=== PATIENT | female | born 1935 | race Caucasian/White ===

== ENCOUNTER 2019-01-26 19:59 | Inpatient (IN) | payer OTHER, MEDICAID ==
[2019-01-26 21:21] LABS: ABNORMAL IP MESSAGE 1; HEMATOCRIT 38.2 % (37.0-47.0); HEMOGLOBIN 12.1 g/dl (12.0-16.0); MEAN CORPUSCULAR HEMOGLOBIN 28.5 pg (29.0-33.0); MEAN CORPUSCULAR HGB CONC 31.7 g/dl (32.0-37.0); MEAN CORPUSCULAR VOLUME 89.9 fl (82.0-101.0); MEAN PLATELET VOLUME 11.3 fl (7.4-10.4); NUCLEATED RED BLOOD CELLS% 0.1 /100WBC (0.0-0.0); PLATELET COUNT 155 10^3/UL (140-415); RED BLOOD COUNT 4.25 10^6/ul (4.20-5.40)
[2019-01-26 21:21] LABS: WHITE BLOOD COUNT 18.3 10^3/ul (4.8-10.8)
[2019-01-26 21:25] LABS: ADD MAN DIFF? YES; POSITIVE DIFF @See below
[2019-01-26 21:38] LABS: ANION GAP 10 (5-13); BLOOD UREA NITROGEN 56 mg/dl (7-20); CALCIUM 10.9 mg/dl (8.4-10.2); CARBON DIOXIDE 25 mmol/L (21-31); CHLORIDE 106 mmol/L (97-110); CREATININE 1.57 mg/dl (0.44-1.00); POTASSIUM 4.1 mmol/L (3.5-5.1); SODIUM 141 mmol/L (135-144)
[2019-01-26 21:44] LABS: GLUCOSE 427 mg/dl (70-220)
[2019-01-26 21:50] LABS: B-TYPE NATRIURETIC PEPTIDE 8710 PG/ML (0-450); TROPONIN-I 0.063 ng/ml (0.000-0.120)
[2019-01-26 22:11] LABS: LYMPHOCYTES #M 0.5 10^3/ul (0.8-2.9); LYMPHOCYTES % (M) 3 % (15-51); METAMYELOCYTES #M 0.3 10^3/ul (0.0-0.0); METAMYELOCYTES %M 2 % (0-0); MONOCYTE #M 0.5 10^3/ul (0.3-0.9); MONOCYTES % (M) 3 % (0-11); PLATELET ESTIMATE NORMAL; SEGMENTED NEUTROPHILS (M) % 92 % (39-77); SMUDGE%M 23 % (0-0)
[2019-01-26 23:06] LABS: URINE BLOOD (Dip) POC 1+ (NEGATIVE); URINE KETONES (Dip) POC Negative (NEGATIVE); URINE LEUKOCYTE EST (Dip) POC 1+ (NEGATIVE); URINE NITRITE (Dip) POC Negative (NEGATIVE); URINE TOTAL PROTEIN POC Negative (NEGATIVE)
[2019-01-27] MEDS: FUROSEMIDE 40 MG INJ IV (00:26)
[2019-01-27] MEDS: CEFTRIAXONE 1 GM INJ IM (00:26)
[2019-01-27] MEDS ORDERED: ONDANSETRON 4 MG INJ IV ×2 (01:00→04:00)
[2019-01-27 03:10] LABS: CREATINE KINASE 22 IU/L (23-200)
[2019-01-27 03:19] LABS: CK INDEX 16.3; CK-MB 3.58 ng/ml (0.0-2.4); TROPONIN-I 0.072 ng/ml (0.000-0.120)
[2019-01-27] MEDS ORDERED: NITROGLYCERIN (SL) 0.4 MG TAB SL (04:00)
[2019-01-27] MEDS ORDERED: NACL 0.9% 3 ML SYG IV (04:00)
[2019-01-27 04:15] LABS: ABNORMAL IP MESSAGE 1; HEMATOCRIT 37.5 % (37.0-47.0); HEMOGLOBIN 12.1 g/dl (12.0-16.0); MEAN CORPUSCULAR HEMOGLOBIN 28.7 pg (29.0-33.0); MEAN CORPUSCULAR HGB CONC 32.3 g/dl (32.0-37.0); MEAN CORPUSCULAR VOLUME 88.9 fl (82.0-101.0); MEAN PLATELET VOLUME 11.8 fl (7.4-10.4); PLATELET COUNT 151 10^3/UL (140-415); POSITIVE DIFF @See below; RED BLOOD COUNT 4.22 10^6/ul (4.20-5.40); RED CELL DISTRIBUTION WIDTH 15.9 % (11.5-14.5)
[2019-01-27 04:15] LABS: WHITE BLOOD COUNT 16.1 10^3/ul (4.8-10.8)
[2019-01-27 04:16] LABS: ADD MAN DIFF? YES
[2019-01-27 04:28] LABS: ALANINE AMINOTRANSFERASE 55 IU/L (13-69); ALBUMIN 3.2 g/dl (3.3-4.9); ALBUMIN/GLOBULIN RATIO 1.23; ALKALINE PHOSPHATASE 84 IU/L (42-121); ANION GAP 9 (5-13); ASPARTATE AMINO TRANSFERASE 26 IU/L (15-46); BILIRUBIN,INDIRECT 0.3 mg/dl (0-1.1); BILIRUBIN,TOTAL 0.3 mg/dl (0.2-1.3); BLOOD UREA NITROGEN 54 mg/dl (7-20); CALCIUM 11.2 mg/dl (8.4-10.2); CARBON DIOXIDE 26 mmol/L (21-31); CHLORIDE 106 mmol/L (97-110); CHOL/HDL RATIO 3.7 RATIO; CHOLESTEROL 175 mg/dl (100-200); CREATININE 1.41 mg/dl (0.44-1.00); GLUCOSE 391 mg/dl (70-220); HDL CHOLESTEROL 47 mg/dl (33-92); LDL CHOLESTEROL,CALCULATED 77 mg/dl; MAGNESIUM 1.7 mg/dl (1.7-2.5); POTASSIUM 3.8 mmol/L (3.5-5.1); SODIUM 141 mmol/L (135-144); TOTAL PROTEIN 5.8 g/dl (6.1-8.1); TRIGLYCERIDES 253 mg/dl (0-149)
[2019-01-27] MEDS ORDERED: DEXTROSE 50% 50 ML SYRINGE IV ×2 (04:30)
[2019-01-27] MEDS ORDERED: GLUCAGON 1 MG INJ IM (04:30)
[2019-01-27] MEDS ORDERED: GLUCOSE GEL 15 GRAM TUBE PO ×2 (04:30)
[2019-01-27] MEDS ORDERED: GLUCOSE GEL 15 GRAM TUBE BUCCAL (04:30)
[2019-01-27 04:59] LABS: THYROID STIMULATING HORMONE 0.376 MIU/L (0.465-4.680)
[2019-01-27] MEDS: FUROSEMIDE 20 MG TAB PO ×2 (05:30→17:19)
[2019-01-27] MEDS: ACETAMINOPHEN 325 MG TAB PO ×2 (05:30→20:10)
[2019-01-27] MEDS: INSULIN GLARGINE [LANTus] (100 UNITS/ML) SYG SC ×2 (05:35→20:26)
[2019-01-27 06:50] LABS: ADD UMIC YES; UR ASCORBIC ACID NEGATIVE (NEGATIVE); UR BILIRUBIN (Dip) NEGATIVE (NEGATIVE); UR BLOOD (Dip) NEGATIVE (NEGATIVE); UR CLARITY CLEAR (CLEAR); UR COLOR COLORLESS (YELLOW); UR GLUCOSE (Dip) 3+ mg/dL (NEGATIVE); UR KETONES (Dip) NEGATIVE (NEGATIVE); UR LEUKOCYTE ESTERASE (Dip) TRACE Leu/ul (NEGATIVE); UR NITRITE (Dip) NEGATIVE (NEGATIVE); UR RBC 1 /HPF (0-5); UR SPECIFIC GRAVITY (Dip) 1.006 (1.003-1.030); UR TOTAL PROTEIN (Dip) NEGATIVE (NEGATIVE); UR UROBILINOGEN (Dip) NEGATIVE (NEGATIVE); UR WBC 6 /HPF (0-5)
[2019-01-27] MEDS: INSULIN ASPART [NOVOLOG] 3 ML PEN SC ×7 (07:49→20:10)
[2019-01-27 07:50] LABS: ANISOCYTOSIS 1+ (0-0); BAND NEUTROPHILS #M 0.8 10^3/ul (0.0-0.6); BAND NEUTROPHILS % (M) 5 % (0-4); ERYTHROBLAST% (NRBC) (M) 1 % (0-0); LYMPHOCYTES #M 0.6 10^3/ul (0.8-2.9); LYMPHOCYTES % (M) 4 % (15-51); METAMYELOCYTES #M 0.1 10^3/ul (0.0-0.0); METAMYELOCYTES %M 1 % (0-0); MICROCYTOSIS 1+ (0-0); MONOCYTE #M 0.6 10^3/ul (0.3-0.9); MONOCYTES % (M) 4 % (0-11); MYELOCYTES #M 0.3 10^3/ul (0.0-0.0); MYELOCYTES % (M) 2 % (0-0); PLATELET ESTIMATE NORMAL; POIKILOCYTOSIS 1+ (0-0); POLYCHROMASIA 3+ (0-0); SEG NEUT #M 13.7 10^3/ul (1.6-7.5); SEGMENTED NEUTROPHILS (M) % 84 % (39-77); SMUDGE%M 8 % (0-0)
[2019-01-27] MEDS: ASPIRIN (EC) 81 MG TAB PO (08:14)
[2019-01-27] MEDS: CEFTRIAXONE 1 GM/50 ML (PMX) 50 ML IVPB (08:14)
[2019-01-27] MEDS: metFORMIN 500 MG TAB PO ×2 (08:14→20:10)
[2019-01-27] MEDS: RIVAROXABAN 10 MG TABLET PO (08:14)
[2019-01-27] MEDS: DILTIAZEM (CD) 240 MG CAP PO (08:15)
[2019-01-27 08:50] LABS: HEMOGLOBIN A1C 10.4 % (0-5.9)
[2019-01-27] MEDS ORDERED: DILTIAZEM (CD) 240 MG CAP PO (09:00)
[2019-01-27 10:11] LABS: CREATINE KINASE < 20 IU/L (23-200)
[2019-01-27 10:12] LABS: CK-MB 2.98 ng/ml (0.0-2.4); TROPONIN-I 0.064 ng/ml (0.000-0.120)
[2019-01-27 10:35] LABS: POTASSIUM,URINE RANDOM 20.8 mmol/L (25-125)
[2019-01-27 10:35] LABS: SODIUM,URINE RANDOM 72 mmol/L (30-90)
[2019-01-27] MEDS ORDERED: INSULIN ASPART [NOVOLOG] 3 ML PEN SC (12:00)
[2019-01-27] MEDS: RIVAROXABAN 15 MG TABLET PO (17:19)
[2019-01-28] MEDS: ACCU-CHEK XX (02:21)
[2019-01-28] MEDS: FUROSEMIDE 20 MG TAB PO ×2 (05:00→17:07)
[2019-01-28 06:27] LABS: ABNORMAL IP MESSAGE 1; HEMATOCRIT 38.3 % (37.0-47.0); HEMOGLOBIN 12.2 g/dl (12.0-16.0); MEAN CORPUSCULAR HEMOGLOBIN 28.6 pg (29.0-33.0); MEAN CORPUSCULAR HGB CONC 31.9 g/dl (32.0-37.0); MEAN CORPUSCULAR VOLUME 89.9 fl (82.0-101.0); MEAN PLATELET VOLUME 11.7 fl (7.4-10.4); PLATELET COUNT 138 10^3/UL (140-415); RED BLOOD COUNT 4.26 10^6/ul (4.20-5.40); RED CELL DISTRIBUTION WIDTH 16.1 % (11.5-14.5)
[2019-01-28 06:27] LABS: WHITE BLOOD COUNT 11.9 10^3/ul (4.8-10.8)
[2019-01-28 06:37] LABS: ADD MAN DIFF? YES; POSITIVE DIFF @See below
[2019-01-28 07:22] LABS: ANION GAP 6 (5-13); BLOOD UREA NITROGEN 54 mg/dl (7-20); CALCIUM 10.7 mg/dl (8.4-10.2); CARBON DIOXIDE 31 mmol/L (21-31); CHLORIDE 104 mmol/L (97-110); CREATININE 1.45 mg/dl (0.44-1.00); GLUCOSE 135 mg/dl (70-220); MAGNESIUM 1.6 mg/dl (1.7-2.5); PHOSPHORUS 2.9 mg/dl (2.5-4.9); POTASSIUM 3.3 mmol/L (3.5-5.1); SODIUM 141 mmol/L (135-144)
[2019-01-28] MEDS: metFORMIN 500 MG TAB PO ×2 (07:30→20:05)
[2019-01-28] MEDS: INSULIN ASPART [NOVOLOG] 3 ML PEN SC ×7 (07:30→20:10)
[2019-01-28 08:03] LABS: ANISOCYTOSIS 1+ (0-0); BAND NEUTROPHILS #M 0.9 10^3/ul (0.0-0.6); BAND NEUTROPHILS % (M) 8 % (0-4); EOSINOPHILS % (M) 3 % (0-7); GIANT THROMBO% (M) 1 % (0-0); LYMPHOCYTES #M 0.9 10^3/ul (0.8-2.9); LYMPHOCYTES % (M) 8 % (15-51); METAMYELOCYTES #M 0.2 10^3/ul (0.0-0.0); METAMYELOCYTES %M 2 % (0-0); MONOCYTE #M 0.3 10^3/ul (0.3-0.9); MONOCYTES % (M) 3 % (0-11); MYELOCYTES #M 0.8 10^3/ul (0.0-0.0); MYELOCYTES % (M) 7 % (0-0); PLATELET ESTIMATE NORMAL; POIKILOCYTOSIS 1+ (0-0); POLYCHROMASIA 3+ (0-0); REACTIVE LYMPHOCYTES #M 0.3 10^3/ul (0.0-0.0); REACTIVE LYMPHOCYTES% (M) 3 % (0-0); SEGMENTED NEUTROPHILS (M) % 66 % (39-77); SMUDGE%M 7 % (0-0)
[2019-01-28] MEDS: ASPIRIN (EC) 81 MG TAB PO (08:23)
[2019-01-28] MEDS: CEFTRIAXONE 1 GM/50 ML (PMX) 50 ML IVPB (08:23)
[2019-01-28] MEDS: DILTIAZEM (CD) 240 MG CAP PO (08:23)
[2019-01-28] MEDS ORDERED: RIVAROXABAN 10 MG TABLET PO (09:00)
[2019-01-28] MEDS: MAGNESIUM SULFATE 2 GM/50 ML 50 ML IVPB (09:37)
[2019-01-28] MEDS: POTASSIUM CHLORIDE 20 MEQ POWDER FOR ORAL SOLN PO (09:37)
[2019-01-28] MEDS: RIVAROXABAN 15 MG TABLET PO (17:07)
[2019-01-28] MEDS: ACETAMINOPHEN 325 MG TAB PO (20:05)
[2019-01-28] MEDS: INSULIN GLARGINE [LANTus] (100 UNITS/ML) SYG SC (20:11)
[2019-01-29] MEDS: ACCU-CHEK XX (02:00)
[2019-01-29] MEDS: FUROSEMIDE 20 MG TAB PO (04:47)
[2019-01-29] MEDS: INSULIN ASPART [NOVOLOG] 3 ML PEN SC ×4 (07:50→11:31)
[2019-01-29] MEDS: ASPIRIN (EC) 81 MG TAB PO (08:25)
[2019-01-29] MEDS: metFORMIN 500 MG TAB PO (08:25)
[2019-01-29] MEDS: CEFTRIAXONE 1 GM/50 ML (PMX) 50 ML IVPB (08:25)
[2019-01-29] MEDS: DILTIAZEM (CD) 240 MG CAP PO (08:26)
[2019-01-29 10:20] LABS: ADD MAN DIFF? NO
[2019-01-29 10:22] LABS: WHITE BLOOD COUNT 12.5 10^3/ul (4.8-10.8)
[2019-01-29 10:22] LABS: ABNORMAL IP MESSAGE 1; BASOPHILS % 0.3 % (0.0-2.0); EOSINOPHILS # 0.1 10^3/ul (0.0-0.5); HEMATOCRIT 40.2 % (37.0-47.0); HEMOGLOBIN 12.7 g/dl (12.0-16.0); LYMPHOCYTES # 1.9 10^3/ul (0.8-2.9); LYMPHOCYTES % 14.8 % (15.0-51.0); MEAN CORPUSCULAR HEMOGLOBIN 28.7 pg (29.0-33.0); MEAN CORPUSCULAR HGB CONC 31.6 g/dl (32.0-37.0); MONOCYTE # 0.4 10^3/ul (0.3-0.9); MONOCYTES % 3.3 % (0.0-11.0); NEUTROPHIL # 9.2 10^3/ul (1.6-7.5); NEUTROPHILS % 73.8 % (39.0-77.0); NUCLEATED RED BLOOD CELLS% 0.2 /100WBC (0.0-0.0); PLATELET COUNT 148 10^3/UL (140-415); RED BLOOD COUNT 4.42 10^6/ul (4.20-5.40); RED CELL DISTRIBUTION WIDTH 16.4 % (11.5-14.5)
[2019-01-29 10:28] LABS: POSITIVE DIFF @See below
[2019-01-29 10:41] LABS: ANION GAP 9 (5-13); BLOOD UREA NITROGEN 58 mg/dl (7-20); CALCIUM 10.4 mg/dl (8.4-10.2); CARBON DIOXIDE 30 mmol/L (21-31); CHLORIDE 103 mmol/L (97-110); CREATININE 1.63 mg/dl (0.44-1.00); GLUCOSE 151 mg/dl (70-220); POTASSIUM 4.2 mmol/L (3.5-5.1); SODIUM 142 mmol/L (135-144)
== END 2019-01-29 15:00 | disposition home or self-care (01) | DRG 291 ==
LOC: E/R 19:59 → 6WM 01-27 01:55
DX: I13.0 Hypertensive heart and chronic kidney disease with heart failure and stage 1 through stage 4 chronic kidney disease, or unspecified chronic kidney disease (principal); I50.33 Acute on chronic diastolic (congestive) heart failure; N39.0 Urinary tract infection, site not specified; N17.9 Acute kidney failure, unspecified; I48.91 Unspecified atrial fibrillation; E11.65 Type 2 diabetes mellitus with hyperglycemia; E05.90 Thyrotoxicosis, unspecified without thyrotoxic crisis or storm; N18.9 Chronic kidney disease, unspecified
CPT/HCPCS: 36415; 71045; 80048; 80053; 80061; 81001; 81003; 82436; 82550; 82553; 82962; 83036; 83735; 83880; 84100; 84133; 84300; 84439; 84443; 84484; 85025; 87081; 87086; 93005; 93306; 96372; 96374; 99285-25